=== PATIENT | female | born 1955 | race American Indian/Alaskan Native ===

== ENCOUNTER → 2017-01-08 14:37 | Outpatient (CLI) | payer BC ==
[~2017-01-08 14:37] MED LIST: CO Q-10200 MG PO; GARLIC PO; HCTZ25 MG PO; IMITREX100 MG PO; LEVOXYL100 MCG PO; LIPITOR10 MG PO; MECLIZINE HCL12.5 MG PO; ULTRAM50 MG PO
[2017-03-14 11:58] VITALS: BMI 35.1
== END | disposition home or self-care (01) ==
LOC: D.RAD 14:37
DX: S86.911A Strain of unspecified muscle(s) and tendon(s) at lower leg level, right leg, initial encounter (principal)

== ENCOUNTER → 2017-01-25 17:39 | Outpatient (CLI) | payer BC ==
[2017-03-14 11:58] VITALS: BMI 35.1
== END | disposition home or self-care (01) ==
LOC: D.MAMMO 14:00
DX: Z85.3 Personal history of malignant neoplasm of breast (principal); Z12.31 Encounter for screening mammogram for malignant neoplasm of breast

== ENCOUNTER → 2017-03-06 13:03 | Outpatient (CLI) | payer BC ==
[2017-03-14 11:58] VITALS: BMI 35.1
== END | disposition home or self-care (01) ==
LOC: D.MAMMO 11:30
DX: R92.8 Other abnormal and inconclusive findings on diagnostic imaging of breast (principal)

== ENCOUNTER 2017-03-14 11:15 | Outpatient (CLI) | payer BC ==
[~2017-03-14] VITALS: Ht 170.2 cm; Wt 101.8 kg
--- NOTE | ~2017-03-14 | HEMODYNAMI ---
PATIENT:LIBERTAD SPRINGER MEDICAL RECORD: [id number] : 57 LOCATION:[facility] ADMISSION DATE: 03/14/17 Generatedon:03/14/201713:27 Patient name: LIBERTAD SPRINGER Patient #: [id number] SSN: DO B: 1955 Date of study: 03/14/2017 Page: Of Hemodynamic Procedure Report Patient Data Patient Demographics Procedure consent was obtained First Name: LIBERTAD Gender: Female Last Name: RACHEAL : 1955 [facility] Initial: GODWIN Age: 61 year(s) Patient #: [id number] Race: Unknown Additional ID: [id number] Contact details [address]: [address] [place] [address] State: [place] City: [place] Zip code: [address] Past Medical History Allergies: No known allergies Admission Admission Data Admission Date: 03/14/2017 Admission Time: 11:15 Lab Results Lab Result Date: 03/14/2017 Lab Result Time: 12:10 Biochemistry Name Units Result Min Max BUN mg/dl 15 --(--*-)-- 7 18 Creatinine mg/dl 0.5 -*(----)-- 0.6 1.3 CBC Name Units Result Min Max Hematocrit % 46.7 --(-*--)-- 42 54 Hemoglobin g/dl 15.9 --(--*-)-- 13.5 17.5 Procedure Procedure Types Cath Procedure Diagnostic Procedure [facility] w/Coronaries Miscellaneous Procedures Moderate Sedation up to 30 minutes Procedure Description Procedure Date Procedure Date: 03/14/2017 Procedure Start Time: 13:11 Procedure End Time: 13:26 Procedure Staff Name Function Elan Burns MD Performing Physician Salty Guzman RT Monitor Sherry Robert RT Scrub Julee Fox RN Nurse Procedure Data Cath Procedure Fluoroscopy Diagnostic fluoroscopy Total fluoroscopy Time: 1.6 time: 1.6 min min Diagnostic fluoroscopy Total fluoroscopy dose: 375 dose: 375 mGy mGy Contrast Material Contrast Material Type Amount (ml) Isovue 300 55 Entry Location Entry Primary Successful Side Size Upsize Upsize Entry Closure Succes sful Closure Location (Fr) 1 (Fr) 2 (Fr) Remarks Device Remarks Femoral Right 5 Fr Exoseal artery Estimated blood loss: 5 ml Diagnostic catheters Device Type Used For End Catheter Placement MULTIPACK JL 4.0 5Fr Procedure catheter MULTIPACK 3DRC 5Fr Procedure catheter MULTIPACK Pigtail 5 Fr Procedure catheter Procedure Complications No complications Procedure Medications Medication Administration Route Dosage Oxygen NC 2 l/min Lidocaine 2% added to field 20 Heparin Flush Bag added to field 2 bags (1000units/500ml NS) 0.9% NaCl I.V. 100 ml/hr Benadryl I.V. 50 mg Versed I.V. 2 mg Fentanyl I.V. 100 mcg Versed I.V. 1 mg Fentanyl I.V. 50 mcg Versed I.V. 1 mg Fentanyl I.V. 50 mcg Hemodynamics Rest HGB: 15.9 (g/dl) Heart Rate: 76 (bpm) Pressure Samples Time Site Value (mmHg) Purpose Heart Use Rate(bpm) 13:19 LV 143/-4,18 Snapshot 75 13:19 LV 146/-3,20 Snapshot 70 13:19 AO 118/57(84) Pullback 67 13:19 LV 133/-4,38 Pullback 67 Gradients Valve Time Site 1 Site 2 Mean SEP/DFP Peak To Heart Use (mmHg) (sec/min) Peak Rate (mmHg) (bpm) Aortic 13:19 LV AO 12 18 15 67 133/-4,38 118/57(84) Calculations Valve P-P Mean Valve Index Valve Source Name Gradient Area Flow (cm2) Aortic 15 12 15 12 Snapshots Pre Cath Intra NCS Post Cath Vital Signs Time Heart Resp SPO2 etCO2 NIBP (mmHg) Rhythm Pain Sedation Rate (ipm) (%) (mmHg) Status Level (bpm) 12:51:02 80 17 96 0 156/85(127) NSR 0 (11) 10(A) , No pain 12:55:48 74 15 95 0 154/84(121) NSR 0 (11) 10(A) , No pain 13:00:33 76 16 95 0 127/72(103) NSR 0 (11) 10(A) , No pain 13:05:14 68 16 94 0 125/75(96) NSR 0 (11) 10(A) , No pain 13:10:35 71 15 97 0 133/78(109) NSR 0 (11) 10(A) , No pain 13:16:03 72 16 97 0 117/63(92) NSR 0 (11) 9(A) , No pain 13:20:46 75 15 95 0 117/68(89) NSR 0 (11) 10(A) , No pain 13:25:26 82 17 97 0 128/72(102) NSR 0 (11) 10(A) , No pain Medications Time Medication Route Dose Verified Delivered Reason Notes Effe ctiveness by by 12:53:28 Oxygen NC 2 Elan Buffie used for l/min Grant Fox RN procedure 12:53:36 Lidocaine 2% added 20ml Elan Elan for local to vial Grant Burns MD anesthetic field 12:53:44 Heparin Flush added 2 Elan Elan used for Bag to bags Grant Burns MD procedure (1000units/500ml field NS) 12:53:53 0.9% NaCl I.V. 100 Elan Buffie Per ml/hr Grant Fox RN physician 12:54:21 Benadryl I.V. 50 mg Elan Buffie used for Grant Fox RN procedure 13:05:06 Versed I.V. 2 mg Elan Buffie for Grant Fox RN sedation 13:05:13 Fentanyl I.V. 100 Elan Buffie for mcg Grant Fox RN sedation 13:11:31 Versed I.V. 1 mg Elan Buffie for Grant Fox RN sedation 13:11:35 Fentanyl I.V. 50 Elan Buffie for mcg Grant Fox RN sedation 13:15:20 Versed I.V. 1 mg Elan Buffie for Grant Fox RN sedation 13:15:24 Fentanyl I.V. 50 Elan Buffie for mcg Grant Fox RN sedation Procedure Log Time Note 12:20:45 Salty Guzman RT(R) sent for patient. Start room use. 12:38:46 Time tracking: Regular hours 12:38:50 Plan of Care:Hemodynamics will remain stable., Cardiac rhythm will remain stable., Comfort level will be maintained., Respiratory function will remain adequate., Patient/ family verbilizes understanding of procedure., Procedure tolerated without complication., Recovers from procedure without complications.. 12:43:38 Patient received from Pre/Post Procedure Room to CCL 1 Alert and oriented. Tansferred to table in Supine position. 12:43:40 Warm blankets applied, and farhana hugger turned on for patient comfort. 12:43:40 Correct patient and procedure confirmed by team. 12:43:42 Signed procedure consent form obtained from patient. 12:43:42 ECG and BP/O2 sat monitors applied to patient. 12:50:05 Vital chart was started 12:50:36 Baseline sample Acquired. 12:50:42 Rhythm: sinus rhythm 12:50:46 Full Disclosure recording started 12:50:58 H&P Date Dictated: 03/14/2017 New H&P dictated by physician.. 12:50:59 Pre-procedure instructions explained to patient. 12:50:59 Pre-op teaching completed and patient verbalized understanding. 12:51:03 Family in patients room. 12:51:04 Patient NPO since Midnight. 12:51:13 Patient allergic to No known allergies 12:51:16 Is the patient allergic to Iodine/contrast media? No. 12:51:18 Is patient on blood thinner?No 12:51:21 Patient diabetic? No. 12:51:25 Previous problem with sedation/anesthesia? No ? 12:51:27 Snore? Yes 12:51:28 Sleep apnea? No 12:51:29 Deviated septum? No 12:51:29 Opens mouth fully? Yes 12:51:30 Sticks out tongue? Yes 12:51:32 Airway obstruction? No ? 12:51:34 Dentures? No ? 12:51:37 Pre procedure: right dorsailis pedis pulse 1+ Palpable, but thready & weak; easily obliterated 12:51:40 Pre procedure: right posterior tibial pulse 2+ Normal; easily identifiable; not easily obliterated 12:51:41 Patient pain scale 0/10 ?. 12:51:59 IV patent on arrival in left hand with 0.9% NaCl at O. 12:53:28 Oxygen 2 l/min NC was administered by Julee Fox RN; used for procedure; 12:53:36 Lidocaine 2% 20ml vial added to field was administered by Elan Burns MD; for local anesthetic; 12:53:44 Heparin Flush Bag (1000units/500ml NS) 2 bags added to field was administered by Elan Burns MD; used for procedure; 12:53:53 0.9% NaCl 100 ml/hr I.V. was administered by Julee Fox RN; Per physician; 12:53:57 Lab results completed and on chart. 12:54:21 Benadryl 50 mg I.V. was administered by Julee Fox RN; used for procedure; 12:54:39 Lab Result : Hemoglobin 15.9 g/dl 12:54:39 Lab Result : Hematocrit 46.7 % 12:54:44 Right groin area was prepped with chlora-prep and draped in sterile fashion 12:54:45 Alarms reviewed by R. N. 12:54:45 Sharps counted by scrub and verified by R.N. 12:54:50 Use device set Femoral Dx 12:54:53 ACIST Syringe (89021) opened to sterile field. 12:54:54 ACIST Hand Control (10318) opened to sterile field. 12:54:55 ACIST Manifold (58566) opened to sterile field. 12:54:59 Bag Decanter (2002S) opened to sterile field. 12:55:01 Tegaderm 4 x 4 (1626W) opened to sterile field. 12:55:03 Medline Cath Pack ([id number]) opened to sterile field. 12:55:06 PERCUTANEOUS ENTRY 19GA needle opened to sterile field. 12:55:08 DIAGNOSTIC Multipack 5Fr catheter set (QG7380) opened to sterile field. 12:55:09 DIAGNOSTIC WIRE .035 260cm J wire (932135) opened to sterile field. 12:55:10 SHEATH 5FR Kaufman ([id number]) opened to sterile field. 13:00:27 Zero performed for pressure channel P1 13:03:01 Physician arrived 13:03:02 --------ALL STOP TIME OUT------ 13:03:05 Final Timeout: patient, procedure, and site verified with staff and physician. All members of the team are in agreement. 13:03:07 Popliteal region site verified by team. 13:03:08 Right groin site verified by team. 13:03:11 Physical assessment completed. ASA score P 2 - A patient with mild systemic disease as per Elan Burns MD. 13:03:14 Sedation plan: IV Moderate Sedation Medication:Versed, Fentanyl 13:05:06 Versed 2 mg I.V. was administered by Julee Fox RN; for sedation; 13:05:13 Fentanyl 100 mcg I.V. was administered by Julee Fox RN; for sedation; 13:10:57 Procedure started. 13:11:18 Lab Result : Creatinine 0.5 mg/dl 13:11:18 Lab Result : BUN 15 mg/dl 13:11:24 Local anesthetic to right femoral artery with Lidocaine 2% by Elan Burns MD.INITIAL ACCESS ONLY 13:11:31 Versed 1 mg I.V. was administered by Julee Fox RN; for sedation; 13:11:35 Fentanyl 50 mcg I.V. was administered by Julee Fox RN; for sedation; 13:13:38 A 5 Fr sheath was inserted into the Right Femoral artery 13:13:45 A MULTIPACK JL 4.0 5Fr catheter was advanced over the wire and used for Procedure. 13:14:34 LCA angiography performed. 13:15:20 Versed 1 mg I.V. was administered by Julee Fox RN; for sedation; 13:15:24 Fentanyl 50 mcg I.V. was administered by Julee Fox RN; for sedation; 13:15:38 Catheter exchanged over wire. 13:15:45 A MULTIPACK 3DRC 5Fr catheter was advanced over the wire and used for Procedure. 13:16:52 RCA angiography performed. 13:17:19 Catheter exchanged over wire. 13:17:29 A MULTIPACK Pigtail 5 Fr catheter was advanced over the wire and used for Procedure. 13:18:58 LV hemodynamics recorded. 13:19:27 LV gram done using LESLIE 13:19:29 Injector settings: Ml/sec: 10, Volume: 20, 13:19:35 EF : 55 % 13:19:54 Catheter removed. 13:19:56 EXOSEAL 5Fr (EX500) opened to sterile field. 13:20:10 Sheath removed intact; hemostasis achieved with Exoseal to the Right Femoral artery. 13:20:12 Procedure ended.(Physican Out) 13:20:58 Fluoroscopy time 01.60 minutes. 13:21:03 Fluoroscopy dose: 375 mGy 13:21:03 Flurop Dose total: 375 13:21:32 Contrast amount:Isovue 300 55ml. 13:21:34 Sharps counted by scrub and verified by R.N. 13:24:04 Insertion/operative site no bleeding no hematoma. 13:24:06 Post-op/insertion site Right Femoral artery dressed using a 4 x 4 and Tegaderm. 13:24:10 Post right femoral artery:stable, soft, clean and dry 13:24:12 Post Procedure Pulses reassessed and unchanged 13:25:42 Post-procedure physical assessment completed. ASA score P 2 - A patient with mild systemic disease as per Elan Burns MD. 13:25:45 Post procedure rhythm: unchanged. 13:25:47 Estimated blood loss: 5 ml 13:25:49 Post procedure instruction explained to patient.Patient verbalizes understanding. 13:25:50 Patient needs reinforcement of post procedure teaching. 13:26:05 Procedure type changed to Cath procedure, Diagnostic procedure, LHC, LHC w/Coronaries, Miscellaneous Procedures, Moderate Sedation up to 30 minutes 13:26:35 Procedure and supply charges have been captured, reviewed, submitted and are correct. 13:26:37 Procedure Complication : No complications 13:26:39 Vital chart was stopped 13:26:40 See physician's report for complete and final results. 13:26:41 Report given to Pre/Post Procedure Room. 13:26:44 Patient transfered to Pre/Post Procedure Room with Stretcher. 13:26:46 Procedure ended. 13:26:46 Full Disclosure recording stopped 13:26:52 End room use (Document Last) Device Usage Item Name Manufacture Quantity Catalog Hospital Part Current Minimal Lot# / Number Charge Number Stock Stock Serial# Code ACIST Acist 1 59219 652190 440277 911932 20 Syringe Medical (97876) Systems Inc ACIST Hand Acist 1 84241 367731 353926 811286 5 Control Medical (62195) Systems Inc ACIST Acist 1 83543 569624 934394 434088 5 Manifold Medical (55159) Systems Inc Bag Decanter Microtek 1 2001S 382110 55120 236188 5 () Medical Inc. Tegaderm 4 x 3M 1 1626W 990224 520650 089604 5 4 (1626W) Medline Cath Cardinal 1 [id number] 709209 17215 024008 5 [facility] ([id number]) PERCUTANEOUS Cook Medical 1 C21674 613487 071591 5 ENTRY 19GA needle DIAGNOSTIC Cardinal 1 QK7542 526678 28072 598301 30 Multipack Health 5Fr catheter set ([id number]) DIAGNOSTIC [facility] F[place] 1 965041 595565 065911 111549 30 WIRE .035 260cm J wire (303870) SHEATH 5FR Terumo 1 VVI083 618596 134342 629906 40 Kaufman (EVD914) MULTIPACK JL Cardinal 1 959178 5 4.0 5Fr Health catheter MULTIPACK Cardinal 1 677429 5 3DRC 5Fr Health catheter MULTIPACK Cardinal 1 747090 5 Pigtail 5 Fr Health catheter EXOSEAL 5Fr Cardinal 1 EX500 424501 813171 874534 10 (EX500) Health Signature Audit [place] Stage Time Signature Unsigned Intra-Procedure 03/14/2017 Salty Guzman 1:27:07 PM RT(R) Signatures Monitor : Salty Guzman RT Signature : Date : Time : [place] [id number] [place] [address]
[2017-03-14] MEDS ORDERED: LEVOXYL100 MCG PO (11:51)
[2017-03-14] MEDS ORDERED: HCTZ25 MG PO (11:51)
[2017-03-14] MEDS ORDERED: CO Q-10200 MG PO (11:52)
[2017-03-14] MEDS ORDERED: LIPITOR10 MG PO (11:52)
[2017-03-14] MEDS ORDERED: GARLIC PO (11:52)
[2017-03-14] MEDS ORDERED: IMITREX100 MG PO (11:53)
[2017-03-14] MEDS ORDERED: ULTRAM50 MG PO (11:54)
[2017-03-14] MEDS ORDERED: MECLIZINE HCL12.5 MG PO (11:54)
[2017-03-14 11:58] VITALS: BP 150/68; Ht 170.2 cm; Wt 101.8 kg
[2017-03-14 12:21] LABS: BASOPHILS 0.4 % (0-2); EOSINOPHILS 1.1 % (0-7); HEMATOCRIT 46.7 % (36.0-48.0); HEMOGLOBIN 15.9 g/dL (12-16); IMMATURE GRANULOCYTES 0.3 % (0-5); MCH 30.3 pg (26.0-34.0); MCV 89.1 fL (80.0-100.0); MEAN PLATELET VOLUME 9.7 fL (7.4-10.4); MONOCYTES 8.1 % (2-11); NEUTROPHILS 67.1 % (40-80); PLATELET COUNT 274 10x3/uL (130-400); RBC 5.24 10x6/uL (4.00-5.40); RDW 13.5 % (11.5-14.5); WBC 9.8 10x3/uL (4.8-10.8)
[2017-03-14 13:11] LABS: CALC OSMOLALITY 275 mosm/kg (275-300); CALCIUM 10.2 mg/dL (8.5-10.1); CARBON DIOXIDE 19.8 mmol/L (21.0-32.0); CHLORIDE - SERUM 99 mmol/L (98-107); CREATININE - SERUM 0.5 mg/dL (0.6-1.3); GLUCOSE 117 mg/dL (74-106); POTASSIUM - SERUM 4.7 mmol/L (3.5-5.1); SODIUM 137 mmol/L (136-145); UREA NITROGEN 15 mg/dL (7-18); eGFR NON AFRICAN AMERICAN > 90 mL/min (90-120)
--- NOTE | 2017-03-14 14:01 | NUR ---
1350 LYING FLAT, AWAKE. ROOM AIR WITH NO RESP DISTRESS. PULSES PALP X 4. CAP REFILL BRISK. NO C/O CHEST PAIN. R GROIN 5F EXOSEAL C/D/I W NO HEMATOMA OR BLEEDING.
--- NOTE | 2017-03-14 15:00 | NUR ---
HOB ELEVATED 30 DEGREES. RIGHT GROIN 5F EXOSEAL CDI, NO BLEEDING NOTED. SANDWICH TRAY AND DRINK GIVEN, NO C/O NAUSEA. VSS. WILL CONTINUE TO MONITOR.
--- NOTE | 2017-03-14 15:15 | NUR ---
LEFT PIV D/C'D WITH CATHETER INTACT, BAND AID TO SITE. UP TO BEDSIDE TO GET DRESSED.
--- NOTE | 2017-03-14 15:25 | NUR ---
DISCHARGE INSTRUCTIONS GIVEN, VERBALIZED UNDERSTANDING.
--- NOTE | 2017-03-14 15:35 | NUR ---
TAKEN OUT VIA WHEELCHAIR BY CATH UPHOLSTERY SEWER. LEFT FACILITY WITH FAMILY AND ALL PERSONAL BELONGINGS.
== END 2017-03-14 15:35 | disposition home or self-care (01) ==
LOC: D.CATH 11:15
PROVIDERS: Internal Medicine Cardiovascular Disease
DX: I20.9 Angina pectoris, unspecified (principal); R94.30 Abnormal result of cardiovascular function study, unspecified; E78.5 Hyperlipidemia, unspecified; R06.02 Shortness of breath; Z01.812 Encounter for preprocedural laboratory examination

== ENCOUNTER 2018-11-21 08:00 | Outpatient (CLI) | payer BC ==
[2017-03-14 11:58] VITALS: BMI 35.1
== END 2018-11-21 23:59 | disposition home or self-care (01) ==
LOC: D.MAMMO 08:00
PROVIDERS: ATTEND Family Medicine
DX: Z12.31 Encounter for screening mammogram for malignant neoplasm of breast (principal)